=== PATIENT | male | born 1940 | race Caucasian/White ===

== ENCOUNTER 2021-09-14 09:18 | Inpatient (IN) | payer MEDICARE, OTHER ==
[~2021-09-14] VITALS: Ht 177.8 cm; Wt 98.0 kg
[2021-09-14 09:48] LABS: HEMOGLOBIN 10.4 gm/dl (14.0-17.5); RED BLOOD COUNT 3.61 M/UL (4.20-5.50); WHITE BLOOD COUNT 11.4 K/UL (4.5-11.0)
[2021-09-14] MEDS ORDERED: HYDROXYZINE HCL25 MG PO (12:37)
[2021-09-14] MEDS ORDERED: ACETAMINOPHEN500 MG PO (12:38)
[2021-09-14] MEDS ORDERED: SALINE NOSE SPR45 ML (12:39)
[2021-09-14] MEDS ORDERED: ONDANSETRON HCL4 MG PO (12:39)
[2021-09-14] MEDS ORDERED: ATORVASTATIN CA40 MG PO (12:40)
[2021-09-14] MEDS ORDERED: LOPRESSOR 25 MG25 MG PO (12:41)
[2021-09-14] MEDS ORDERED: ELIQUIS 2.5 MG2.5 MG PO (12:41)
[2021-09-14] MEDS ORDERED: DOK100 M1 PO (12:42)
[2021-09-14] MEDS ORDERED: LANTUS SOL100 UNIT/1 SQ (12:42)
[2021-09-14] MEDS ORDERED: SENNA PLUS TAB1 EACH PO (12:43)
[2021-09-14] MEDS ORDERED: ISOSORBIDE MONO30 MG PO (12:44)
[2021-09-14] MEDS ORDERED: CLOPIDOGREL75 MG PO (12:44)
[2021-09-14] MEDS ORDERED: HYDROCODON-ACE1 EAC2 PO (12:45)
[2021-09-14] MEDS ORDERED: GABAPENTIN300 MG PO (12:45)
[2021-09-14] MEDS ORDERED: CLEARLAX119 GM PO (12:46)
[2021-09-14] MEDS ORDERED: IPRAT-ALBUT 0.5-3 ML INH (12:47)
[2021-09-14] MEDS ORDERED: FAMOTIDINE20 MG PO (12:47)
[2021-09-14] MEDS ORDERED: SODIUM CHLORIDE15 ML INH (12:48)
[2021-09-14] MEDS ORDERED: CELEXA 20MG TAB20 MG PO (12:48)
[2021-09-14] MEDS ORDERED: INSULIN LI100 UNIT/2 SQ (12:50)
[2021-09-14 23:33] LABS: HEMOGLOBIN 8.8 gm/dl (14.0-17.5); WHITE BLOOD COUNT 10.6 K/UL (4.5-11.0)
[2021-09-14 23:37] LABS: RED BLOOD COUNT 3.03 M/UL (4.20-5.50)
[2021-09-15 06:03] LABS: RED BLOOD COUNT 2.75 M/UL (4.20-5.50); WHITE BLOOD COUNT 9.1 K/UL (4.5-11.0)
[2021-09-15 18:25] LABS: HEMOGLOBIN 9.2 gm/dl (14.0-17.5)
--- NOTE | 2021-09-16 05:47 | NUR ---
NOTIFIED DR ANTONIO OF PTS K LEVEL. ORDERS RECIEVED.
[2021-09-16 11:53] LABS: WHITE BLOOD COUNT 7.3 K/UL (4.5-11.0)
[2021-09-16 12:02] LABS: RED BLOOD COUNT 3.18 M/UL (4.20-5.50)
[2021-09-17 16:14] LABS: ORGANISM ID Not indicated. (.); SPECIMEN SOURCE Urine (.); STREPTOCOCCUS PNEUMONIAE AG Negative (Negative)
[2021-09-21 06:59] LABS: HEMOGLOBIN 10.1 gm/dl (14.0-17.5); RED BLOOD COUNT 3.49 M/UL (4.20-5.50)
[2021-09-22 06:41] LABS: HEMOGLOBIN 9.4 gm/dl (14.0-17.5); RED BLOOD COUNT 3.31 M/UL (4.20-5.50); WHITE BLOOD COUNT 7.6 K/UL (4.5-11.0)
[2021-09-23] MEDS ORDERED: FLOMAX 0.4 MG0.4 MG PO (18:43)
[2021-09-23 19:52] LABS: HEMOGLOBIN 9.8 gm/dl (14.0-17.5); RED BLOOD COUNT 3.33 M/UL (4.20-5.50); WHITE BLOOD COUNT 9.4 K/UL (4.5-11.0)
[2021-09-24] MEDS ORDERED: FERROUS GLUCON324 M1 PO (09:53)
[2021-09-24] MEDS ORDERED: HYDROCODON-ACE1 EAC2 PO (09:53)
[2021-09-24] MEDS ORDERED: ALDACTONE25 MG PO (10:04)
== END 2021-09-24 14:36 | DRG 177 ==
LOC: ER1 09:18 → M/S 10:51 → PROG CARE 10:51 → CDU 10:51 → PROG CARE 17:10 → M/S 09-21 17:03
PROVIDERS: Emergency Medicine; Internal Medicine; Internal Medicine Cardiovascular Disease; Internal Medicine Infectious Disease; Physician Assistant; ADMIT Internal Medicine
PROC: B24BZZZ Ultrasonography of Heart with Aorta (ICD-10-PCS; principal; 2021-09-14)
PROC: 5A09457 Assistance with Respiratory Ventilation, 24-96 Consecutive Hours, Continuous Positive Airway Pressure (ICD-10-PCS; 2021-09-14)
PROC: 5A09357 Assistance with Respiratory Ventilation, Less than 24 Consecutive Hours, Continuous Positive Airway Pressure (ICD-10-PCS; 2021-09-17)
PROC: 5A09357 Assistance with Respiratory Ventilation, Less than 24 Consecutive Hours, Continuous Positive Airway Pressure (ICD-10-PCS; 2021-09-19)
PROC: 5A09357 Assistance with Respiratory Ventilation, Less than 24 Consecutive Hours, Continuous Positive Airway Pressure (ICD-10-PCS; 2021-09-23)
PROC: 5A09357 Assistance with Respiratory Ventilation, Less than 24 Consecutive Hours, Continuous Positive Airway Pressure (ICD-10-PCS; 2021-09-24)
DX: J69.0 Pneumonitis due to inhalation of food and vomit (principal); I50.23 Acute on chronic systolic (congestive) heart failure; J80 Acute respiratory distress syndrome; I21.A1 Myocardial infarction type 2; G92.8 Other toxic encephalopathy; Z20.822 Contact with and (suspected) exposure to COVID-19; N17.9 Acute kidney failure, unspecified; I13.0 Hypertensive heart and chronic kidney disease with heart failure and stage 1 through stage 4 chronic kidney disease, or unspecified chronic kidney disease; N30.00 Acute cystitis without hematuria; I48.20 Chronic atrial fibrillation, unspecified; E66.2 Morbid (severe) obesity with alveolar hypoventilation; I42.8 Other cardiomyopathies; L89.610 Pressure ulcer of right heel, unstageable; I44.7 Left bundle-branch block, unspecified; N40.0 Benign prostatic hyperplasia without lower urinary tract symptoms; E11.22 Type 2 diabetes mellitus with diabetic chronic kidney disease; J15.9 Unspecified bacterial pneumonia; E78.5 Hyperlipidemia, unspecified; K21.9 Gastro-esophageal reflux disease without esophagitis; E87.6 Hypokalemia; D50.9 Iron deficiency anemia, unspecified; I27.20 Pulmonary hypertension, unspecified; L89.312 Pressure ulcer of right buttock, stage 2; D63.1 Anemia in chronic kidney disease; B96.89 Other specified bacterial agents as the cause of diseases classified elsewhere; I25.10 Atherosclerotic heart disease of native coronary artery without angina pectoris; F41.9 Anxiety disorder, unspecified; Z96.651 Presence of right artificial knee joint; R53.81 Other malaise; T50.995A Adverse effect of other drugs, medicaments and biological substances, initial encounter; F32.A Depression, unspecified; E11.42 Type 2 diabetes mellitus with diabetic polyneuropathy; N18.30 Chronic kidney disease, stage 3 unspecified; Z79.01 Long term (current) use of anticoagulants; I25.2 Old myocardial infarction; Z83.3 Family history of diabetes mellitus; Z79.4 Long term (current) use of insulin; Z68.31 Body mass index [BMI] 31.0-31.9, adult
CPT/HCPCS: ECHO; 0240U; 36415; 36600; 51702; 71045; 71250; 74230; 80048; 80053; 80202; 81001; 82140; 82550; 82553; 82607; 82803; 82962; 83540; 83550; 83605; 83735; 83880; 84132; 84443; 84484; 85014; 85018; 85025; 85027; 85610; 85730; 86140; 87040; 87070; 87077; 87081; 87086; 87186; 87205; 87278; 87899; 92526; 92610; 92611-GN; 93005; 93306; 94640; 94660; 94760; 96374; 96375; 97110; 97110-GP-CQ; 97162; 97166; 97530; 97530-GP-CQ; 99285; J0692; J1120; J1335; J1644; J1940; J2060; J2185; J3370; J7050; J7070; Q9957; U0002

== ENCOUNTER 2021-09-26 18:07 | Emergency (ER) | payer MEDICARE, OTHER ==
[~2021-09-26 18:07] MED LIST: ACETAMINOPHEN500 MG PO; ALDACTONE25 MG PO; ATORVASTATIN CA40 MG PO; CELEXA 20MG TAB20 MG PO; CLEARLAX119 GM PO; CLOPIDOGREL75 MG PO; DOK100 M1 PO; ELIQUIS 2.5 MG2.5 MG PO; FAMOTIDINE20 MG PO; FERROUS GLUCON324 M1 PO; FLOMAX 0.4 MG0.4 MG PO; GABAPENTIN300 MG PO; HYDROCODON-ACE1 EAC2 PO; HYDROXYZINE HCL25 MG PO; INSULIN LI100 UNIT/2 SQ; IPRAT-ALBUT 0.5-3 ML INH; ISOSORBIDE MONO30 MG PO; LANTUS SOL100 UNIT/1 SQ; LOPRESSOR 25 MG25 MG PO; ONDANSETRON HCL4 MG PO; SALINE NOSE SPR45 ML; SENNA PLUS TAB1 EACH PO; SODIUM CHLORIDE15 ML INH
[2021-09-26 20:03] LABS: HEMOGLOBIN 9.8 gm/dl (14.0-17.5); RED BLOOD COUNT 3.37 M/UL (4.20-5.50); WHITE BLOOD COUNT 10.9 K/UL (4.5-11.0)
== END 2021-09-26 22:58 | disposition home or self-care (01) ==
LOC: ER1 18:07
PROVIDERS: Family Medicine
DX: J96.11 Chronic respiratory failure with hypoxia (principal); J96.12 Chronic respiratory failure with hypercapnia; I50.22 Chronic systolic (congestive) heart failure; D64.9 Anemia, unspecified; E11.22 Type 2 diabetes mellitus with diabetic chronic kidney disease; I48.20 Chronic atrial fibrillation, unspecified; Z79.01 Long term (current) use of anticoagulants; Z79.02 Long term (current) use of antithrombotics/antiplatelets; Z79.899 Other long term (current) drug therapy
CPT/HCPCS: 36600; 71045; 80053; 82550; 82553; 82803; 83605; 83880; 84484; 85025; 93005; 99285